=== PATIENT | female | born 1940 | race African-American/Black ===

== ENCOUNTER 2016-07-01 12:34 | Emergency (ER) | payer MEDICARE | END 2016-07-01 13:50 | disposition home or self-care (01) | LOC: MADERS 12:34 | DX: F41.0 Panic disorder [episodic paroxysmal anxiety] (principal); R06.4 Hyperventilation; Z79.82 Long term (current) use of aspirin; Z79.899 Other long term (current) drug therapy | CPT/HCPCS: 99283 ==

== ENCOUNTER 2017-03-13 12:14 | Emergency (ER) | payer MEDICARE ==
[~2017-03-13 12:14] MED LIST: Donnatal Elixir 16.2 MG/5 ML UDCUP ONE
[2017-03-13] MEDS ORDERED: Donnatal Elixir 16.2 MG/5 ML UDCUP ONE (13:17)
[2017-03-13] MEDS ORDERED: Mag-Al Plus 1200 MG/1200 MG/120 MG/30 ML UDCUP ONE (13:17)
[2017-03-13] MEDS ORDERED: Lidocaine Viscous Sol 2% 15 ml UD Cup ONE (13:17)
== END 2017-03-13 14:11 | disposition home or self-care (01) ==
LOC: MADERS 12:14
DX: K29.70 Gastritis, unspecified, without bleeding (principal); K21.9 Gastro-esophageal reflux disease without esophagitis; E78.5 Hyperlipidemia, unspecified; I10 Essential (primary) hypertension; F41.9 Anxiety disorder, unspecified; F32.9 Major depressive disorder, single episode, unspecified; Z79.82 Long term (current) use of aspirin; Z79.899 Other long term (current) drug therapy
CPT/HCPCS: 93005

== ENCOUNTER 2017-04-22 14:16 | Emergency (ER) | payer MEDICARE ==
[2017-04-22] MEDS ORDERED: Lorazepam 2 MG/ML VIAL ONE (14:55)
== END 2017-04-22 15:45 | disposition home or self-care (01) ==
LOC: MADERS 14:16
DX: F41.9 Anxiety disorder, unspecified (principal); I10 Essential (primary) hypertension; E78.5 Hyperlipidemia, unspecified; F32.9 Major depressive disorder, single episode, unspecified; Z79.82 Long term (current) use of aspirin; Z79.899 Other long term (current) drug therapy
CPT/HCPCS: 96374; J2060

== ENCOUNTER 2018-07-23 10:56 | Outpatient (CLI) | payer MEDICARE ==
--- NOTE | 2018-07-23 11:48 | RAD ---
XR Thoracic Spine 3 V STANDARD: 07/23/2018 11:07 AM CLINICAL INDICATION: Back pain for 2 months COMPARISON: 11/25/2012 FINDINGS: Fracture:No fracture. Arthropathy:Moderate multilevel degenerative change Incidental findings:Tortuosity and ectasia of aorta. Surgical clips of right abdomen. IMPRESSION: 1. No acute osseous abnormality. 2. Moderate degenerative change of thoracic spine.
--- NOTE | 2018-07-23 11:50 | RAD ---
XR Lumbar Spine Min 4 View: 07/23/2018 11:07 AM CLINICAL INDICATION: Low back pain for 2 months, no trauma COMPARISON: None. FINDINGS: Fracture:No fracture. Arthropathy:Mild multilevel degenerative change. There is left convexity curvature of the lumbar spin e, apex at the L2-3 level Incidental findings:Atherosclerotic vascular calcification. IMPRESSION: 1. No acute osseous abnormality. 2. Multilevel degenerative change of the lumbar spine.
== END 2018-07-23 10:57 | disposition home or self-care (01) ==
LOC: MADRAD 10:56
PROVIDERS: ATTEND General Practice
DX: M54.5 Low back pain (principal); M47.816 Spondylosis without myelopathy or radiculopathy, lumbar region; M47.814 Spondylosis without myelopathy or radiculopathy, thoracic region
CPT/HCPCS: 72072; 72110

== ENCOUNTER 2019-03-02 11:45 | Emergency (ER) | payer MEDICARE | END 2019-03-02 12:30 | disposition home or self-care (01) | LOC: MADERS 11:45 | DX: M16.0 Bilateral primary osteoarthritis of hip (principal); M17.0 Bilateral primary osteoarthritis of knee; E78.5 Hyperlipidemia, unspecified; I10 Essential (primary) hypertension; F41.9 Anxiety disorder, unspecified; F32.9 Major depressive disorder, single episode, unspecified; Z79.82 Long term (current) use of aspirin; Z79.899 Other long term (current) drug therapy | CPT/HCPCS: 99283 ==

== ENCOUNTER 2019-04-04 09:12 | Emergency (ER) | payer MEDICARE | END 2019-04-04 11:03 | disposition home or self-care (01) | LOC: MADERS 09:12 | DX: M54.40 Lumbago with sciatica, unspecified side (principal); E78.5 Hyperlipidemia, unspecified; E78.00 Pure hypercholesterolemia, unspecified; I10 Essential (primary) hypertension; F41.9 Anxiety disorder, unspecified; F32.9 Major depressive disorder, single episode, unspecified; Z79.82 Long term (current) use of aspirin; Z79.899 Other long term (current) drug therapy | CPT/HCPCS: 99283 ==

== ENCOUNTER 2019-08-22 09:03 | Emergency (ER) | payer MEDICARE ==
--- NOTE | 2019-08-22 10:13 | RAD ---
Exam:Left foot 3 views HISTORY: Pain COMPARISON: None FINDINGS: Lisfranc alignment is maintained. Preserved joint spaces. No fracture or cortical irregular ity or periosteal reaction. IMPRESSION: No posttraumatic change. No fractures.
--- NOTE | 2019-08-22 10:14 | RAD ---
EXAM: XR Pelvis AP STANDARD PROVIDED CLINICAL HISTORY: Left hip pain for 2 to 3 months. COMPARISON: Views of the bilateral hips on 05/23/2010 FINDINGS: No fracture or dislocation is seen involving the hips bilaterally. Joint spaces are symmetric bilater ally. No lytic or sclerotic osseous lesion is identified. Minimal degenerative changes are seen at the pubic symphysis. Radiopaque density overlies central pelvis which was also seen on the studies in 2011. This could potentially represent a pessary device. Phleboliths overlie the pelvis. IMPRESSION: No acute osseous abnormality.
[2019-08-22] MEDS ORDERED: Ibuprofen 800 MG TAB ONE (10:44)
[2019-08-22] MEDS ORDERED: Dexamethasone 4 mg/ml Vial ONE (10:44)
[2019-08-22] MEDS ORDERED: Dexamethasone 10 MG/ML VIAL ONE (10:44)
== END 2019-08-22 10:52 | disposition home or self-care (01) ==
LOC: MADERS 09:03
DX: M54.42 Lumbago with sciatica, left side (principal); M25.572 Pain in left ankle and joints of left foot; E78.5 Hyperlipidemia, unspecified; E78.00 Pure hypercholesterolemia, unspecified; I10 Essential (primary) hypertension; F41.9 Anxiety disorder, unspecified; F32.9 Major depressive disorder, single episode, unspecified; Z79.82 Long term (current) use of aspirin; Z79.899 Other long term (current) drug therapy
CPT/HCPCS: 72170; 96372; J1100

== ENCOUNTER 2019-08-25 09:37 | Emergency (ER) | payer MEDICARE ==
[2019-08-25 10:27] LABS: Bilirubin Negative (Negative); Blood, Urine Trace (Negative); Clarity Clear (Clear); Glucose, Urine (Dipstick) Negative (Negative); Ketone, Urine Negative (Negative); Leukocyte Small (Negative); Nitrite Negative (Negative); Protein, Urine (Dipstick) Negative (Neg-Trace); Specific Gravity, Urine 1.015 (1.005-1.030); Urobilinogen 0.2 mg/dL (Less than 2); pH, Urine 7.5 (5.0-9.0)
[2019-08-25 10:32] LABS: RBC/HPF 0-3 HPF (0-3); Squamous Epithelial 0-3 HPF (0-3); WBC/HPF 0-3 HPF (0-3)
[2019-08-25 10:33] LABS: Bacteria/HPF Rare-Few HPF (None Seen)
--- NOTE | 2019-08-25 10:59 | CT ---
CT lumbar spine noncontrast HISTORY: Back pain. Pelvic pain. FINDINGS: Vertebral body heights are maintained. Osseous structures are markedly demineralized. Metallic clips are present at the gallbladder fossa. There is calcification throughout the arterial s tructures. Diverticula arise from the colon. The inferior most images partially show a well-circumscribed homogeneous fluid density mass in the le ft lower pelvis, at the expected location of the left adnexa. On the inferior most image, it is 4.3 cm x 3.5 cm greatest diameters. The inferior margin of the lesion is not visible. T11-12: Disc space narrowing. Minimal degenerative retrolisthesis. Gas disc phenomenon. Posterior ost eophyte/disc complex. Osteophytosis of the facets. Severe left foraminal stenosis. T12-L1: Disc space narrowing. Minimal degenerative retrolisthesis. Posterior disc bulge and circumfer ential degenerative changes. Mild stenosis of the central canal. Moderate bilateral foraminal stenoses. L1-2: Disc space narrowing and minimal degenerative retrolisthesis. Gas disc phenomenon. Posterior di sc bulge and circumferential degenerative changes. Mild stenosis of the central canal. Moderate to severe stenosis of each neural foramen. L2-3: Posterior disc bulge and circumferential degenerative changes. Moderate stenosis of the central canal and each neural foramen. L3-4: Disc space narrowing, gas disc phenomenon, and spondylolisthesis. Posterior disc bulge and circ umferential degenerative changes. Severe stenosis of the central canal and each neural foramen. L4-5: Gas disc phenomenon. Mild disc bulge and circumferential degenerative changes. Moderate stenosi s of the central canal and each neural foramen. L5-S1: Gas disc phenomenon. Prominent posterior disc bulge. Circumferential degenerative changes. Sev ere stenosis of the central canal. Mild stenosis of each neural foramen. IMPRESSION : Severe multilevel degenerative changes throughout the lumbar spine as detailed above. Central canal a nd neural foraminal stenosis most severe at the L3-4 level. Partially visualized cystic lesion within the left lower pelvis, favored to arise from the expected l ocation of the left adnexa. Please consider gynecologic evaluation. Pelvic sonogram could further characterize the lesion in the used to evaluate for any change in size on follow-up exams. Atherosclerosis. Diverticulosis.
[2019-08-25] MEDS ORDERED: Nitrofurantoin Monohyd/M-Cryst 100 MG CAP ONE (11:03)
--- NOTE | 2019-08-25 11:04 | CT ---
CT pelvis noncontrast HISTORY: Pelvic pain. FINDINGS: Prominent degenerative changes lower lumbar spine and less prominent degenerative change of the hips are apparent. No acute fracture, dislocation, or aggressive osseous erosions. There is calcification of the arterial structures. Diverticula arise from the colon without adjacent inflammation apparent. 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 Prosthetic support device noted within the upper vaginal vault. At the left posterior pelvis at the expected location of the left adnexa, a well-circumscribed oval h omogeneous fluid density mass is 4.3 cm x 4.1 cm x 3.4 cm greatest diameters. Uterus and ovaries are not visualized and may be surgically absent. No free fluid evident. IMPRESSION : No acute osseous abnormalities are demonstrated. Cystic mass of the left lower pelvis, possibly arising from the left ovary or residual left adnexa. P lease consider gynecologic evaluation. Pelvic sonogram could further characterize the lesion and be used to evaluate stability of size on follow-up exams. Atherosclerosis. Diverticulosis.
[2019-08-25] MEDS ORDERED: Acetaminophen 325 MG TAB ONE (11:45)
== END 2019-08-25 12:05 | disposition short-term general hospital (02) ==
LOC: MADERS 09:37
DX: N30.01 Acute cystitis with hematuria (principal); N94.89 Other specified conditions associated with female genital organs and menstrual cycle; I10 Essential (primary) hypertension; F03.90 Unspecified dementia, unspecified severity, without behavioral disturbance, psychotic disturbance, mood disturbance, and anxiety; E78.5 Hyperlipidemia, unspecified; E78.00 Pure hypercholesterolemia, unspecified; F41.9 Anxiety disorder, unspecified; F32.9 Major depressive disorder, single episode, unspecified; Z79.82 Long term (current) use of aspirin; Z79.899 Other long term (current) drug therapy
CPT/HCPCS: 72131; 72192; 81003; 81015

== ENCOUNTER 2019-10-16 14:53 | Emergency (ER) | payer MEDICARE ==
--- NOTE | 2019-10-16 15:18 | RAD ---
Exam: Chest one view HISTORY:Altered mental status Comparison: 09/04/2005 FINDINGS: Cardiac silhouette: Normal Aorta: Unremarkable Pulmonary vessels: Normal Costophrenic angles: Clear LUNGS: No masses or consolidation. Pneumothorax: None Osseous abnormalities: None IMPRESSION: No acute cardiopulmonary process.
--- NOTE | 2019-10-16 15:33 | CT ---
Exam: Head CT without contrast HISTORY: Altered mental status COMPARISON: none FINDINGS: Hemorrhage: No intraparenchymal hemorrhage or extra-axial hematoma. Brain parenchyma: Cortical [place]-white matter differentiation is preserved. No mass effect or midline shift. Basilar cisterns are patent. Ventricular system: Ventricles and sulci are patent and symmetric. Calvarium: Intact. Sinuses and mastoid air cells: Adequate aeration. IMPRESSION: No acute intracranial process.
[2019-10-16 15:47] LABS: ALT (SGPT) 22 U/L (8-55); AST (SGOT) 18 U/L (5-34); Albumin 4.1 g/dL (3.4-4.8); Alkaline Phosphatase 112 U/L (40-110); Anion Gap 15 mmol/L (10-20); BUN (Urea Nitrogen) 11 mg/dL (9.8-20.1); Bilirubin, Total 0.6 mg/dL (0.2-1.2); CK (CPK) 201 U/L (29-168); Calc. Creatinine Clearance 0 mL/min (70-130); Calcium 9.3 mg/dL (7.8-10.44); Carbon Dioxide 24 mmol/L (23-31); Chloride 107 mmol/L (98-107); Estimated GFR-MDRD 78; Glucose 107 mg/dL (83-110); Potassium 3.2 mmol/L (3.5-5.1); Protein, Total 7.1 g/dL (6.0-8.3); Sodium 143 mmol/L (136-145)
[2019-10-16 16:06] LABS: Eosinophils 2 % (0-10); Hemoglobin 14.2 g/dL (12.0-16.0); Lymphocytes 10 % (21-51); MDiff Complete? YES; Mean Corpuscular HGB CONC 32.3 g/dL (32.0-36.0); Mean Corpuscular Hemoglobin 29.4 pg (27.0-31.0); Mean Platelet Volume 7.9 fL (7.4-10.4); Monocytes 3 % (0-10); Neutrophil 71 % (42-75); Platelet Count 284 thou/uL (130-400); Platelet Morphology Comment Appears Adequate; RBC Distribution Width 11.5 % (11.5-14.5); RBC Morphology Normal; Reactive Lymphocytes 14 % (0-10); Red Blood Cell (RBC) Count 4.84 mill/uL (4.20-5.40)
[2019-10-16 16:18] LABS: Bilirubin Negative (Negative); Blood, Urine Trace (Negative); Clarity Clear (Clear); Glucose, Urine (Dipstick) Negative (Negative); Ketone, Urine 40 mg/dL (Negative); Leukocyte Small (Negative); Nitrite Negative (Negative); Protein, Urine (Dipstick) Negative (Neg-Trace); Specific Gravity, Urine 1.025 (1.005-1.030); Urobilinogen 0.2 mg/dL (Less than 2); pH, Urine 5.5 (5.0-9.0)
[2019-10-16 16:22] LABS: Bacteria/HPF 1+ HPF (None Seen); Mucous/LPF 1+ LPF (<2+); RBC/HPF 0-3 HPF (0-3)
== END 2019-10-16 16:45 | disposition home or self-care (01) ==
LOC: MADERS 14:53
DX: R41.82 Altered mental status, unspecified (principal); N30.00 Acute cystitis without hematuria; E78.5 Hyperlipidemia, unspecified; E78.00 Pure hypercholesterolemia, unspecified; I10 Essential (primary) hypertension; F03.90 Unspecified dementia, unspecified severity, without behavioral disturbance, psychotic disturbance, mood disturbance, and anxiety; F32.9 Major depressive disorder, single episode, unspecified; Z79.82 Long term (current) use of aspirin; Z79.899 Other long term (current) drug therapy
CPT/HCPCS: 36415; 70450; 71045; 80053; 81003; 81015; 82550; 83605; 84484; 85025; 93005; 94760

== ENCOUNTER 2020-04-15 11:23 | Emergency (ER) | payer MEDICARE ==
--- NOTE | 2020-04-15 12:03 | RAD ---
Exam: XR Hip Lt 2-3 View HISTORY: Left hip pain with radiation pain to the foot. COMPARISON: None FINDINGS: No acute fracture, dislocation, or other acute osseous abnormality is identified. Phleboliths overlie the pelvis. Vascular calcifications are seen in the left iliac and femoral arteri es. IMPRESSION: No acute osseous abnormality is identified.
[2020-04-15] MEDS ORDERED: predniSONE 20 MG TAB ONE (12:28)
== END 2020-04-15 12:37 | disposition home or self-care (01) ==
LOC: MADERS 11:23
DX: M54.32 Sciatica, left side (principal); E78.5 Hyperlipidemia, unspecified; E78.00 Pure hypercholesterolemia, unspecified; I10 Essential (primary) hypertension; Z79.82 Long term (current) use of aspirin; Z79.899 Other long term (current) drug therapy
CPT/HCPCS: J7512